=== PATIENT | male | born 2000 | race Two or more races ===

== ENCOUNTER 2021-06-06 10:51 | Emergency (ER) | payer OTHER ==
[~2021-06-06] VITALS: Ht 170.2 cm; Wt 111.1 kg
== END 2021-06-06 12:22 | disposition home or self-care (01) ==
LOC: ER 10:51 → EMR PED 10:51
DX: J06.9 Acute upper respiratory infection, unspecified (principal); Z20.822 Contact with and (suspected) exposure to COVID-19